=== PATIENT | male | born 1990 | race Caucasian/White ===

== ENCOUNTER 2016-10-21 17:23 | Emergency (ER) | payer OTHER | END 2016-10-21 20:11 | disposition home or self-care (01) | DX: M54.5 Low back pain (principal); W10.2XXA Fall (on)(from) incline, initial encounter; R03.0 Elevated blood-pressure reading, without diagnosis of hypertension; Z87.891 Personal history of nicotine dependence ==

== ENCOUNTER 2017-01-31 17:39 | Emergency (ER) | payer OTHER ==
[2017-01-31] MEDS ORDERED: DEXAMETHASONE 10 MG/ML VIAL PO STA (21:12)
[2017-01-31] MEDS ORDERED: AZITHROMYCIN 250 MG TABLET PO STA (21:12)
--- NOTE | 2017-01-31 21:14 | ED Physician Documentation ---
PD HPI HEENT - Stated complaint Stated Complaint: BILAT EAR RINGING - Chief complaint Chief Complaint: Heent - History obtained from History obtained from: Patient, Family - History of Present Illness Timing - onset: How many weeks ago (6) Timing - duration: Weeks (6) Timing - details: Gradual onset, Still present Location: Right ear, Left ear Improves: Nothing Associated symptoms: Rhinorrhea, Other (tinitus) Similar symptoms before: Diagnosis (OM) Recently seen: Not recently seen - Additional information Additional information: 26-year-old previously healthy male has had tinnitus in his ears for the past 6 weeks. He has now developed enough tinnitis that he is unable to sleep at night and he has not been able to secure an appointment with [facility]. He has had a history previously of otitis media as a child multiple times and had tubes. He eventually stopped taking antibiotics and just dealt with it. He is now unable to sleep secondary to the tinnitis and some mild pain. Review of Systems Constitutional: denies: Fever Eyes: denies: Decreased vision Ears: reports: Loss of hearing, Ear pain, Tinnitus/ringing Nose: reports: Rhinorrhea / runny nose. denies: Congestion Throat: denies: Sore throat Respiratory: denies: Dyspnea, Cough GI: denies: Nausea Neurologic: denies: Headache PD PAST MEDICAL HISTORY - Past Surgical History Past Surgical History: No - Present Medications Home Medications: Ambulatory Orders Medication Instructions Recorded Confirmed Azithromycin [Zithromax] 250 mg PO DAILY #4 tablet 01/31/17 - Allergies Allergies/Adverse Reactions: Allergies Allergy/AdvReac Type Severity Reaction Status Date / Time amoxicillin Allergy Unknown Verified 10/21/16 17:29 Penicillins Allergy Unknown Verified 10/21/16 17:29 - Social History Does the pt smoke?: No Smoking Status: Former smoker Does the pt drink ETOH?: Yes Does the pt have substance abuse?: No - Immunizations Immunizations are current?: Yes PD ED PE NORMAL - Vitals Vital signs reviewed: Yes (Hypertensive) - General General: Alert and oriented X 3, No acute distress, Well developed/nourished - HEENT HEENT: Atraumatic, PERRL, EOMI, Other (Both TMs are markedly inflamed with distorted landmarks and retraction of the TM. The left appears worse than the right.) - Neck Neck: Supple, no meningeal sign, No bony TTP - Cardiac Cardiac: RRR, No murmur - Respiratory Respiratory: No respiratory distress, Clear bilaterally - Abdomen Abdomen: Soft, Non tender - Back Back: No CVA TTP, No spinal TTP - Derm Derm: Normal color, Warm and dry, No rash - Extremities Extremities: No deformity, No edema - Neuro Neuro: Alert and oriented X 3, No motor deficit, No sensory deficit, Normal speech - Psych Psych: Normal mood, Normal affect Results - Vitals Vitals: Vital Signs - 24 hr 01/31/17 17:49 Temperature 36.8 C Heart Rate 90 Respiratory 16 Rate Blood Pressure 131/81 H O2 Saturation 99 Oxygen O2 Source Room air PD MEDICAL DECISION MAKING - ED course Complexity details: considered differential, d/w patient, d/w family ED course: 26-year-old male with acute otitis media has prior history with frequent infections and he has ignored this infection for about 6 weeks. He now is desiring treatment. Here in the emergency department he is administered dexamethasone 10 mg orally and azithromycin 500 mg orally. Departure - Departure Disposition: 01 Home, Self Care Clinical Impression: Otitis media Qualifiers: Otitis media type: suppurative Laterality: bilateral Chronicity: acute Recurrence: not specified as recurrent Spontaneous tympanic membrane rupture: without spontaneous rupture Qualified Code(s): H66.003 - Acute suppurative otitis media without spontaneous rupture of ear drum, bilateral Condition: Stable Instructions: ED Otitis Media Acute Adult Follow-Up: [facility] [Provider Group] Prescriptions: Azithromycin [Zithromax] 250 mg PO DAILY #4 tablet Comments: Today in the Emergency Department your blood pressure was elevated. This can happen from the stress of the visit itself, from a current illness or circumstance or from uncontrolled hypertension. If you take blood pressure medications take your usual mediations, have your blood pressure re-checked in an appropriate setting and follow up any elevation with your primary care doctor.
[2017-01-31 21:24] VITALS: BP 134/66
== END 2017-01-31 21:23 | disposition home or self-care (01) ==
LOC: ED 17:39
DX: H66.003 Acute suppurative otitis media without spontaneous rupture of ear drum, bilateral (principal); R03.0 Elevated blood-pressure reading, without diagnosis of hypertension; Z87.891 Personal history of nicotine dependence
CPT/HCPCS: 99283

== ENCOUNTER 2018-03-28 19:27 | Emergency (ER) | payer OTHER ==
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
[2018-03-28] MEDS ORDERED: HYDROcod/ACET 5/325 Prepack 4 PO STA (21:08)
[2018-03-28] MEDS ORDERED: CYCLOBENZAPRINE 10 MG Prepack 2 PO PRN (21:08)
[2018-03-28 21:42] VITALS: BP 136/71
== END 2018-03-28 21:42 | disposition home or self-care (01) ==
LOC: ED 19:27
DX: M54.5 Low back pain (principal)
CPT/HCPCS: 99283

== ENCOUNTER 2019-01-04 17:47 | Emergency (ER) | payer OTHER ==
[2019-01-04 18:00] VITALS: BP 142/117
== END 2019-01-04 21:04 | disposition left against medical advice (07) ==
LOC: ED 17:47
DX: M54.9 Dorsalgia, unspecified (principal); Z53.21 Procedure and treatment not carried out due to patient leaving prior to being seen by health care provider
CPT/HCPCS: 99281

== ENCOUNTER 2020-02-18 13:09 | Emergency (ER) | payer OTHER ==
--- NOTE | 2020-02-18 13:23 | ED Physician Documentation ---
PD HPI OPHTHO - Stated complaint Stated Complaint: LT EYE PX - Chief complaint Chief Complaint: Heent - History obtained from History obtained from: Patient - History of Present Illness Timing - onset: Today (onset left eye pain without obvious injury this morning.), Last night (a little uncomfortable last night) Timing - duration: Days (1/2) Timing - details: Gradual onset, Still present Location: Left Quality / character: Aching, Sharp Associated symptoms: Redness, Tearing, FB sensation (central eye), Decreased vision (feels it is blurred). No: Swelling, Discharge Contributing factors: No: Recent URI, FB, Wears contacts Similar symptoms before: Has not had sx before Review of Systems Constitutional: denies: Fever, Chills Eyes: reports: Decreased vision, Irritation. denies: Loss of vision, Discharge Nose: denies: Rhinorrhea / runny nose, Congestion Throat: denies: Sore throat Respiratory: denies: Cough PD PAST MEDICAL HISTORY - Past Medical History Cardiovascular: None Respiratory: None Neuro: None Endocrine/Autoimmune: None GI: None : None HEENT: None Psych: None Musculoskeletal: Chronic back pain Derm: None - Past Surgical History Past Surgical History: No - Present Medications Home Medications: Ambulatory Orders Medication Instructions Recorded Confirmed Ibuprofen [Motrin] 600 mg PO TID PRN #25 tab 02/18/20 Ketorolac 0.45% Ophth Drops 1 each LEFTEYE QID #1 bottle 02/18/20 [Acuvail] Neomycin Daniel/Bacitra/Polymyxin 1 applic LEFTEYE QID #3.5 oint...g. 02/18/20 [Hepaxs-Kcovj-Mejcrqk Eye Oint] - Allergies Allergies/Adverse Reactions: Allergies Allergy/AdvReac Type Severity Reaction Status Date / Time amoxicillin Allergy Unknown Verified 02/19/20 09:56 Penicillins Allergy Unknown Verified 02/19/20 09:56 - Social History Does the pt smoke?: No Smoking Status: Never smoker Does the pt drink ETOH?: Yes Does the pt have substance abuse?: No - Immunizations Immunizations are current?: Yes - POLST Patient has POLST: No PD ED PE NORMAL - Vitals Vital signs reviewed: Yes - General General: Alert and oriented X 3, Well developed/nourished, Other (appears very uncomfortable, reluctant to open eye due to discomfort. ) - HEENT HEENT: PERRL, EOMI (light sensitive left eye. Hyperemia without discharge. ), Ears normal, Pharynx benign - Neck Neck: Supple, no meningeal sign, No adenopathy PD ED PE EXPANDED - Eyes Eyes: Injected conj/sclera, Corneal abrasion, Fluorescein uptake (central portion of eye, superficially), Anterior chambers clear, Normal fundi. No: Exudate, Corneal FB, Corneal ulcer Results - Vitals Vitals: Oxygen O2 Source Room air PD MEDICAL DECISION MAKING - ED course Complexity details: re-evaluated patient (feels much better with proparacainbe. ), considered differential, d/w patient Departure - Departure Disposition: Home, Self Care Clinical Impression: Corneal abrasion Qualifiers: Encounter type: subsequent encounter Laterality: left Qualified Code(s): S05.02XD - Injury of conjunctiva and corneal abrasion without foreign body, left eye, subsequent encounter Condition: Stable Record reviewed to determine appropriate education?: Yes Instructions: ED Eye Injury Corneal Abrasion Follow-Up: [facility] [Provider Group] Brendan Robbins MD [Provider Admit Priv/Credential] - Prescriptions: Ketorolac 0.45% Ophth Drops [Acuvail] 1 each LEFTEYE QID #1 bottle Ibuprofen [Motrin] 600 mg PO TID PRN #25 tab PRN Reason: Pain Neomycin Daniel/Bacitra/Polymyxin [Cxyvhf-Ciqzu-Toubojw Eye Oint] 1 applic LEFTEYE QID #3.5 oint...g. Comments: You do have an abrasion on the anterior part of the eye. Use the anti- inflammatory drops and antibiotic ointment 4 times a day for the next several days. Try to have your eye rechecked tomorrow if possible at your primary care or the medical record technician. If it continues to get better and you are unable to get it checked tomorrow then Saturday is okay. Come back to the ER within 2 to 3 days if it is not improving well. Forms: Activity restrictions Discharge Date/Time: 02/18/20 15:41
[2020-02-18] MEDS ORDERED: PROPARACAINE 0.5% OPHTH DROPS 15 ML EACHEYE STA (13:27)
[2020-02-18] MEDS ORDERED: ERYTHROMYCIN OPHTH OINT 1 GM TUBE LEFTEYE STA (14:31)
[2020-02-18] MEDS ORDERED: IBUPROFEN 600 MG TABLET PO STA (15:23)
[2020-02-18 15:38] VITALS: BP 130/78
== END 2020-02-18 15:41 | disposition home or self-care (01) ==
LOC: ED 13:09
DX: S05.02XA Injury of conjunctiva and corneal abrasion without foreign body, left eye, initial encounter (principal); X58.XXXA Exposure to other specified factors, initial encounter
CPT/HCPCS: 99283; J3490

== ENCOUNTER 2020-02-19 09:28 | Outpatient (CLI) | payer OTHER | END 2020-02-19 09:29 | disposition critical access hospital (66) | LOC: EMS 09:28 | PROVIDERS: ATTEND Surgery | DX: H57.12 Ocular pain, left eye (principal) | CPT/HCPCS: A0425; A0429 ==

== ENCOUNTER 2020-02-19 09:46 | Emergency (ER) | payer OTHER ==
--- NOTE | 2020-02-19 09:50 | ED Physician Documentation ---
PD HPI OPHTHO - Stated complaint Stated Complaint: EYE PAIN - History obtained from History obtained from: Patient - History of Present Illness Timing - onset: Yesterday Timing - duration: Days (2) Timing - details: Gradual onset, Still present (worse today, when awoke, could not open eye due to pain of it and light sensitive.) Location: Left Quality / character: Aching, Sharp Associated symptoms: Redness, Tearing, FB sensation, Photophobia, Decreased vision. No: Swelling, Discharge, Loss of vision, Headache Contributing factors: No: Recent URI, FB, Wears contacts Similar symptoms before: Has not had sx before Recently seen: Emergency Dept (yesterday for this, Dx with corneal abrasion rounded and central area, with superficial dye uptake. Rx with ketorolac and neomycin eye meds. He states the meds hurt with use. Eye pain worse today.) Review of Systems Constitutional: denies: Fever, Chills Nose: denies: Rhinorrhea / runny nose, Congestion Throat: denies: Sore throat Respiratory: denies: Cough PD PAST MEDICAL HISTORY - Past Medical History Cardiovascular: None Respiratory: None Neuro: None Endocrine/Autoimmune: None GI: None : None HEENT: None Psych: None Musculoskeletal: Chronic back pain Derm: None - Past Surgical History Past Surgical History: No - Present Medications Home Medications: Ambulatory Orders Medication Instructions Recorded Confirmed Ibuprofen [Motrin] 600 mg PO TID PRN #25 tab 02/18/20 Ketorolac 0.45% Ophth Drops 1 each LEFTEYE QID #1 bottle 02/18/20 [Acuvail] Neomycin Daniel/Bacitra/Polymyxin 1 applic LEFTEYE QID #3.5 oint...g. 02/18/20 [Xqhlhf-Gepfc-Gynfucq Eye Oint] - Allergies Allergies/Adverse Reactions: Allergies Allergy/AdvReac Type Severity Reaction Status Date / Time amoxicillin Allergy Unknown Verified 02/19/20 09:56 Penicillins Allergy Unknown Verified 02/19/20 09:56 - Social History Does the pt smoke?: No Smoking Status: Never smoker Does the pt drink ETOH?: Yes Does the pt have substance abuse?: No - Immunizations Immunizations are current?: Yes - POLST Patient has POLST: No PD ED PE NORMAL - Vitals Vital signs reviewed: Yes - General General: Alert and oriented X 3, Well developed/nourished, Other (appears in pain due to eye. Reluctant to open eyelid. Light sensitive. ) - HEENT HEENT: PERRL, EOMI - Derm Derm: Normal color, Warm and dry, No rash PD ED PE EXPANDED - HEENT HEENT Visual: 1 - abrasion - Eyes Eyes: EOMI, Left eye, No eyelid FB (everted), Injected conj/sclera, Fluorescein uptake (rouned area central front. The dye uptake seems denser than yesterday. No ulceration per se seen. ), Anterior chambers clear, Normal fundi, Other (feels much better with proparacaine drops. ). No: EOM palsy, Exudate Results - Vitals Vitals: Vital Signs - 24 hr 02/19/20 02/19/20 02/19/20 09:51 11:10 11:56 Temperature 36.6 C 36.9 C 36.5 C Heart Rate 82 66 88 Respiratory 20 20 18 Rate Blood Pressure 159/100 H 121/91 H 166/103 H O2 Saturation 100 100 100 Oxygen O2 Source Room air PD MEDICAL DECISION MAKING - ED course Complexity details: re-evaluated patient (He does feel better with the numbing drops and allowed to re-dose them here. He was not discharged with the drops. We were able to arrange a follow-up appointment with Dr. Robbins ophthalmology at 2 PM this afternoon. There were no providers in [facility] which was right nearby.), considered differential (Persistent appearance of corneal abrasion with increasing pain. I can see if we can get ophthalmology to examine him today and can try the local providers.), d/w patient Departure - Departure Disposition: 01 Home, Self Care Clinical Impression: Corneal abrasion Qualifiers: Encounter type: subsequent encounter Laterality: left Qualified Code(s): S05.02XD - Injury of conjunctiva and corneal abrasion without foreign body, left eye, subsequent encounter Condition: Stable Record reviewed to determine appropriate education?: Yes Follow-Up: Brendan Robbins MD [Provider Admit Priv/Credential] - Comments: Follow-up with Dr. Robbins this afternoon at 2 PM as scheduled. Do not worry about the eyedrops previously prescribed at this point. Continue with recommendations or prescriptions from him. Discharge Date/Time: 02/19/20 11:45
[2020-02-19] MEDS ORDERED: IBUPROFEN 600 MG TABLET PO STA (10:04)
[2020-02-19] MEDS ORDERED: ACETAMINOPHEN 325 MG TABLET PO STA (10:04)
[2020-02-19] MEDS ORDERED: ERYTHROMYCIN OPHTH OINT 1 GM TUBE LEFTEYE STA (10:36)
[2020-02-19] MEDS ORDERED: HYDROcod/ACETAM 5/325 MG TABLET PO STA (10:36)
[2020-02-19 11:58] VITALS: BP 166/103
== END 2020-02-19 11:45 | disposition home or self-care (01) ==
LOC: EDUNIT# → ED 09:46
DX: S05.02XA Injury of conjunctiva and corneal abrasion without foreign body, left eye, initial encounter (principal); X58.XXXA Exposure to other specified factors, initial encounter
CPT/HCPCS: 99283; A9270; J3490

== ENCOUNTER 2020-10-24 21:30 | Emergency (ER) | payer OTHER ==
[2020-10-24 22:31] LABS: BILIRUBIN,URINE NEGATIVE (NEGATIVE); GLUCOSE, URINE (UA) NEGATIVE (NEGATIVE); KETONES,URINE (UA) TRACE mg/dL (NEGATIVE); LEUKOCYTE ESTERASE, URINE NEGATIVE (NEGATIVE); NITRITE,URINE NEGATIVE (NEGATIVE); OCCULT BLOOD,URINE NEGATIVE (NEGATIVE); PROTEIN,URINE NEGATIVE (NEGATIVE); UROBILINOGEN,URINE 0.2 (NORMAL) E.U./dL (NORMAL)
[2020-10-24 22:33] LABS: CLARITY,URINE CLEAR (CLEAR)
--- NOTE | 2020-10-24 22:45 | ED Physician Documentation ---
History of Present Illness - Stated complaint Stated Complaint: LOWER BACK PX - Chief complaint Chief Complaint: Abd Pain - History obtained from History obtained from: Patient - Additonal information Additional information: Patient comes emergency department chief complaint of right lower back pain that has been Increasing in duration and intensity over the course of the day since noon. Patient states that he has not had any nausea or vomiting. No fever or chills. No dysuria or gross hematuria. He states he has a history of some low back problems and previous years, but this does not feel the same. He states he has not done anything that he can think of to injure or stress his back. No direct trauma. Patient states he has not had any pain, numbness, or tingling shooting down his right leg. No loss of bowel or bladder control. Patient has noticed some radiation of pain to his right lower quadrant. Patient states he otherwise feels well and has no other complaints at this time. Review of Systems Ten Systems: 10 systems reviewed and negative Constitutional: reports: Reviewed and negative Eyes: reports: Reviewed and negative Ears: reports: Reviewed and negative Nose: reports: Reviewed and negative Throat: reports: Reviewed and negative Cardiac: reports: Reviewed and negative Respiratory: reports: Reviewed and negative GI: reports: Reviewed and negative. denies: Nausea, Vomiting : reports: Reviewed and negative. denies: Dysuria Skin: reports: Reviewed and negative Musculoskeletal: reports: Back pain Neurologic: reports: Reviewed and negative Psychiatric: reports: Reviewed and negative Endocrine: reports: Reviewed and negative Immunocompromised: reports: Reviewed and negative PD PAST MEDICAL HISTORY - Past Medical History Cardiovascular: None Respiratory: None Neuro: None Endocrine/Autoimmune: None GI: None : None HEENT: None Psych: None Musculoskeletal: Chronic back pain Derm: None - Past Surgical History Past Surgical History: No - Present Medications Home Medications: Ambulatory Orders Medication Instructions Recorded Confirmed Cyclobenzaprine [Flexeril] 10 mg PO TID PRN #20 tablet 10/24/20 Fexofenadine/Pseudoephedrine 1 tab PO DAILY 10/24/20 10/24/20 [Fifi-D 12 Hour Tablet] Fluticasone [Flonase] 10/24/20 - Allergies Allergies/Adverse Reactions: Allergies Allergy/AdvReac Type Severity Reaction Status Date / Time amoxicillin Allergy Unknown Verified 10/24/20 21:38 Penicillins Allergy Unknown Verified 10/24/20 21:38 - Social History Does the pt smoke?: No Smoking Status: Never smoker Does the pt drink ETOH?: Yes Does the pt have substance abuse?: No - Immunizations Immunizations are current?: Yes - POLST Patient has POLST: No PD ED PE NORMAL - Vitals Vital signs reviewed: Yes - General General: Alert and oriented X 3, No acute distress, Well developed/nourished - HEENT HEENT: Atraumatic, PERRL, EOMI, Moist mucous membranes - Neck Neck: Supple, no meningeal sign - Cardiac Cardiac: RRR, No murmur - Respiratory Respiratory: No respiratory distress, Clear bilaterally - Abdomen Abdomen: Soft, Non tender, Non distended - Back Back: No CVA TTP, No spinal TTP, Other (No tenderness palpation at any level of the back over spine or musculature, on either side. 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, Normal speech, Other (Normal, narrow based gait.) - Psych Psych: Normal mood, Normal affect Results - Vitals Vitals: Oxygen O2 Source Room air - Labs Labs: Laboratory Tests 10/24/20 21:41 Urine Color YELLOW Urine Clarity CLEAR Urine pH 7.0 Ur Specific [place] 1.020 Urine Protein NEGATIVE Urine Glucose (UA) NEGATIVE Urine Ketones TRACE Urine Occult Blood NEGATIVE Urine Nitrite NEGATIVE Urine Bilirubin NEGATIVE Urine Urobilinogen 0.2 (NORMAL) Ur Leukocyte Esterase NEGATIVE Ur Microscopic Review NOT INDICATED Urine Culture Comments NOT INDICATED PD MEDICAL DECISION MAKING - ED course Complexity details: reviewed old records, reviewed results, re-evaluated patient, considered differential, d/w patient ED course: The patient was neurologically intact and afebrile. He did not have any concerning findings. Given that he did not have any pain that could be elicited by movement or palpation, I was concerned that he may have a kidney stone. As such, he was worked up with urinalysis and CT abdomen pelvis without contrast, Which was negative. Urinalysis is also negative. Patient was treated symptomatically in the emergency department. We have discussed home management of the symptoms, and the potential need for follow-up. We have discussed the usual indications for return. Departure - Departure Disposition: 01 Home, Self Care Clinical Impression: Acute lumbar back pain Qualifiers: Back pain laterality: right Sciatica presence: without sciatica Qualified Code(s): M54.5 - Low back pain Condition: Stable Instructions: ED Neck Back Pain General Prescriptions: Cyclobenzaprine [Flexeril] 10 mg PO TID PRN #20 tablet PRN Reason: Spasms Comments: Your urinalysis and CT scan look good. There is no evidence of a kidney stone, infection, or any other concerning abnormality. It is not clear exactly what has caused your back pain, though normally, these sorts of symptoms are due to inflammation and irritation from normal wear and tear. As we have discussed, the back is constantly working to stabilize your core and keep your body in an upright position, and sometimes small strains or even mild alterations away from ideal posture can put extra stress on the musculoskeletal structures of the back. This can lead to development of inflammation for seemingly no reason. Usually,this will blow over in time. You may use anti-inflammatories such as ibuprofen, though dosing for an adult of your size should be 600 mg every 6 hours while awake or 800 mg every 8 hours while awake. You may also use the muscle relaxer prescribed to help with any muscle spasm/tightness that may develop. Please follow-up with your primary care physician tomorrow as planned. Avoid heavy lifting until your back is feeling a little better. Discharge Date/Time: 10/24/20 23:40
[2020-10-24] MEDS ORDERED: KETOROLAC 60 MG/2 ML VIAL IM STA (22:47)
[2020-10-24] MEDS ORDERED: CYCLOBENZAPRINE 10 MG TABLET PO STA (23:36)
[2020-10-24 23:40] VITALS: BP 121/73
--- NOTE | 2020-10-25 08:17 | CT Report ---
PROCEDURE: Abdomen/Pelvis WO INDICATIONS: R back/flank pain TECHNIQUE: Noncontrast 5 mm thick sections acquired from the diaphragms to the symphysis. 5 mm coronal and sagi ttal reformats were then performed. For radiation dose reduction, the following was used: automated exposure control, adjustment of mA and/or kV according to patient size. COMPARISON: None. FINDINGS: Image quality: Excellent. ABDOMEN: Lung bases: Lung bases are clear. Heart size is normal. Solid organs: Liver and spleen are normal in size. Gallbladder is unremarkable Pancreas is normal in contours. No adrenal nodules. Kidneys are normal in size, without hydronephrosis or nephrolithia sis. Peritoneum and bowel: Unenhanced bowel loops demonstrate normal wall thickness and caliber. No free fluid or air. Normal appendix Nodes and vessels: No retroperitoneal or mesenteric adenopathy by size criteria. Aorta and inferior vena cava are normal in caliber. Miscellaneous: No ventral hernias. PELVIS: Genitourinary: Bladder wall thickness is normal. Miscellaneous: No inguinal hernias or adenopathy. Bones: No suspicious bony lesions. No vertebral body compression fractures. IMPRESSION: CT abdomen and pelvis without acute abnormalities. No significant discrepancy with initial interpretation by overnight radiologist. Reviewed by: Apollo Kramer MD on 10/25/2020 8:16 AM PDT Approved by: Apollo Kramer MD on 10/25/2020 8:16 AM PDT Station ID: [id number]
== END 2020-10-24 23:40 | disposition home or self-care (01) ==
LOC: ED 21:30
DX: M54.5 Low back pain (principal)
CPT/HCPCS: 74176; 81003; 96372; 99284; A9270; 81001; 87086

== ENCOUNTER 2021-09-23 11:08 | Outpatient (CLI) | payer OTHER | END 2021-09-23 23:59 | disposition home or self-care (01) | LOC: LAB.N 11:08 | PROVIDERS: ATTEND Physician Assistant | DX: R51.9 Headache, unspecified (principal); Z20.822 Contact with and (suspected) exposure to COVID-19 ==

== ENCOUNTER 2024-03-05 08:05 | Outpatient (CLI) | payer OTHER ==
--- NOTE | 2024-03-05 09:13 | Sleep Patient Instructions ---
Sleep Center Visit Summary - Patient Visit Information Reason for Visit: Initial consult for evaluation of sleep disordered breathing and other sleep issues. - Patient Instructions Instructions Attached: Sleep Study Home Monitor, Sleep Study Additional Instructions: You will be completing a sleep study, either an in-lab polysomnography (PSG) or home sleep study (HST). You will follow-up in the sleep care office after the sleep study is completed to hear the results and talk about therapy, if needed. You will be called by our office staff to schedule this appointment, but you may contact us with any questions. - Clinic Information Contact: [facility] [address] [place] [id number] [email or web address] T: [phone]
--- NOTE | 2024-03-05 09:16 | SLEEP CARE CONSULTATION ---
Information from patient questionnaire entered by [employer]. I have reviewed and concur with the information entered by [employer]. This document represents the service I personally performed and the decisions made by me, Kathy Mirza ARNP. History of Present Illness Service Date and Time: 03/05/2024 08 Reason for Visit: New patient Chief Complaint: reports: Unrefreshed sleep, Snoring, Excessive daytime sleepiness, Observed pauses in breathing, Fatigue Date of Onset: YRS BUT WORSE OVER PAST YEAR Usual bedtime: 2029 Time it takes to fall asleep: IMMEDIATLY IF I NAP IT WILL TAKE A WHILE Snores at night: Yes Observed to quit breathing while asleep: Yes Sleeps alone due to snoring: No Reasons for waking at night: reports: Gasping for air Toss, Turn, or Twitch while sleeping: Yes Recalls having dreams: Yes Usually gets out of bed at: 0500 Feels refreshed in the morning: No Morning headache: Yes Sleepy or fatigued during the day: Yes Ever fallen asleep while driving: Yes Takes day naps: Yes Dreams during day naps: Yes Prior sleep studies: No Additional HPI information: I had the pleasure of seeing VAN PINEDO today regarding the possibility of him having a sleep disorder. His current complaints are unrefreshed sleep, snoring, excessive daytime sleepiness, observed pauses in breathing and fatigue. He says he is extremely fatigued during the day and taking too many naps. He says he has 36 alarms on his phone to get him up in the morning. He thought it was normal. He woke up for the first time gasping for air about a few weeks ago. He says throughout the day, if he sits down he will fall asleep. He says he has been sleeping in a recliner the last few weeks and he thinks he is sleeping better. The patient tells me that he normally goes to bed around 8:30-9 pm, and he will fall asleep in minutes unless he had a nap it could be an hour or two. He has been told that he snores loudly and irregularly at night. He has been observed to stop breathing in his sleep. His bed partner can still sleep in the same bed. He can recall waking up on the average of 0 times during the night. His says he does wake up and turn but he does not remember these actions. He has occasionally awakened for choking, and having to gasp for air. There is a lot of tossing and turning in his sleep. Generally he can recall having dreams. He usually wakes up at 0500 but no out of bed until 0700 and does not feel refreshed. He usually does have a morning headache about 1-2 times a week that lasts until [id number]. During the day he complains of feeling sleepy and fatigued. He has fallen asleep while driving and has gone out of the emmett, no accident. He usually naps when falling asleep on couch watching TV (unintentional) for about 1-3 hours during the day. There is somniloquy (sleep talking) but no somnambulism (sleep walking). He reports of sometimes having impaired concentration during the day. - Parasomnia Symptoms Ever been unable to move upon waking from sleep: Yes Walks in sleep: No Talks in sleep: Yes Ever acted out dreams in sleep: No Ever felt weak in the knees when startled or emotional: No Bothered by creepy, crawly, restless sensations in legs: No Problems with memory or concentration: Yes Subjective Initial [place] Sleepiness Scale score: 20 (03/05/24) Past Medical History Past Medical History: reports: Anxiety, Depression Social History The patient's occupation is a AM. Patient is and lives in [place]. Have you smoked in the past 12 months: No Alcohol use: No Caffeine use: Yes Caffeine amount and frequency: 1X ENERGY DRINK ONCE A DAY Family History Family history of sleep disordered breathing: Yes Family Hx Sleep Apnea: Mother: Snoring, Sleep apnea - Untreated, Father: Snoring, Sleep apnea - Untreated, Grandparent: Snoring, Sleep apnea - Treated Allergies and Home Medications Known drug allergies: Yes ( LISTED ) Drug allergies reviewed: Yes Home medication list reviewed: Yes (as listed) Allergy and home medication list: Allergies amoxicillin Allergy (Verified 03/05/24 08:27) Unknown Penicillins Allergy (Verified 03/05/24 08:27) Unknown Home Medications Medication Instructions Recorded Confirmed Last Taken Type Desvenlafaxine Succinate [Pristiq] See Rx Instructions .ROUTE .COMPLEX 03/05/24 03/05/24 Unknown History Review of Systems Weight gain over past 5 years: 30 Cardiovascular: denies: high blood pressure Gastrointestinal: reports: heartburn, difficulty swallowing Neurological: denies: headaches Psychiatric: reports: anxiety, depression Ear/Nose/Throat: reports: wisdom teeth removed. denies: tonsillectomy Immunologic: reports: sneezing, allergies to food or environment Physical Exam Vital signs obtained and entered by: MY Mcpherson MA Blood Pressure: 133/87 (RIGHT ARM) Cuff size: long Heart Rate: 80 O2 Saturation: 99 Height: 6 ft 2 in Weight: 254 lb Body Mass Index: 32.5 BMI Classification: Obese Neck circumference: 17.25 Nostrils: patent to airflow Mouth and throat: normal Soft palate: normal Hard palate: normal Uvula: normal Uvula visualization: 100% Mallampati Class I Tongue: normal in size Tonsils: small Neck: normal w/o lymphadenopathy or thyromegaly Heart: regular rate and rhythm Lungs: clear bilaterally Impression and Plan 1. Suspected Obstructive Sleep Apnea-Hypopnea Syndrome, as suggested by a history of loud and irregular snoring, observed cessation of breath while asleep, gasping or choking in sleep, morning headache, unrefreshed sleep, cognitive impairment, and excessive daytime sleepiness. Narrow oropharynx and obesity are common predisposing factors for obstructive sleep apnea-hypopnea syndrome. I recommend proceeding to polysomnography to confirm the diagnosis and to assess severity. If the patient has significant sleep disordered breathing, a manual CPAP titration study will also be performed to find the optimal treatment pressure. I informed the patient of what the sleep studies involve and after some discussion, obtained agreement to proceed. The pathophysiology of obstructive sleep apnea-hypopnea syndrome was discussed with the patient and health risks of cardiovascular and cerebrovascular disease if not treated. Risks of drowsy driving discussed in detail and patient advised to avoid long di stance driving and to tack puller machine at the first sign of drowsiness. Patient agreed to plan. * Schedule polysomnography * Avoid long distance driving or driving when feeling sleepy. * Avoid alcohol, sedative and muscle relaxant around bedtime. * Attempt to lose weight. * Review instructions provided by trained office staff on how to prepare for the sleep study. * Return for follow-up after sleep study completed. Counseling Topics: Weight loss health impact Plan: PSG/HST and follow up Visit Type: In Office Time Spent with Patient (minutes): 30 Provider Statement: I spent 100% of the Face to Face Visit with the patient with greater than 50% spent counseling the patient and coordination of care.
[2024-03-05 09:18] VITALS: BP 133/87; O2SAT 99
== END 2024-03-05 08:06 | disposition home or self-care (01) ==
LOC: SC 08:05
PROVIDERS: ATTEND Nurse Practitioner Family
DX: G47.8 Other sleep disorders (principal); R06.83 Snoring; G47.10 Hypersomnia, unspecified; R06.81 Apnea, not elsewhere classified; R53.83 Other fatigue; R51.9 Headache, unspecified; R41.89 Other symptoms and signs involving cognitive functions and awareness; E66.9 Obesity, unspecified; Z68.32 Body mass index [BMI] 32.0-32.9, adult
CPT/HCPCS: 99203; 99212

== ENCOUNTER 2024-03-09 12:02 | Outpatient (CLI) | payer OTHER | END 2024-03-09 12:03 | disposition home or self-care (01) | LOC: SC 12:02 | PROVIDERS: ATTEND Nurse Practitioner Family | DX: R06.83 Snoring (principal) | CPT/HCPCS: 95806 ==

== ENCOUNTER 2024-03-25 12:20 | Outpatient (CLI) | payer OTHER | END 2024-03-25 12:21 | disposition home or self-care (01) | LOC: SC 12:20 | PROVIDERS: ATTEND Nurse Practitioner Family | DX: R06.83 Snoring (principal); R09.02 Hypoxemia; R00.0 Tachycardia, unspecified; F32.A Depression, unspecified | CPT/HCPCS: 95806 ==

== ENCOUNTER 2024-04-02 13:12 | Outpatient (CLI) | payer OTHER ==
--- NOTE | 2024-04-02 13:40 | Sleep Patient Instructions ---
Sleep Center Visit Summary - Patient Visit Information Reason for Visit: Sleep study follow-up - Patient Instructions Instructions Attached: Snoring Tips Prevent Additional Instructions: Your sleep study today was negative for significant sleep disordered breathing. You will be completing a sleep study an in-lab polysomnography (PSG). You will follow-up in the sleep care office after the sleep study is completed to hear the results and talk about therapy, if needed. You will be called by our office staff to schedule this appointment, but you may contact us with any questions. - Clinic Information Contact: [facility] [address] [place] [address] [email or web address] T: [phone]
--- NOTE | 2024-04-02 13:45 | SLEEP CARE CONSULTATION ---
Information from patient questionnaire entered by Sierra Lopez. I have reviewed and concur with the information entered by Sierra Lopez. This document represents the service I personally performed and the decisions made by , Kathy Mirza ARNP. History of Present Illness Service Date and Time: 04/02/2024 1312 Initial [place] Sleepiness Scale score: 20 (03/05/24) Current [place] Sleepiness Scale score: 21 (04/02/24) Additional HPI information: VAN PINEDO returns for follow up and results of the recently performed home sleep study done on 03/25/2024. The patient was informed of the following findings: No significant sleep diso rdered breathing with an average AHI of 2.8 and gabriele oxygen saturation of 83%. I explained the pathophysiology behind obstructive sleep apnea. Patient does not have sleep apnea and was advised how weight gain could increase the risk of developing sleep apnea in the future. I strongly encouraged the patient to lose weight. Patient has mild snoring. Snoring can be reduced by weight loss. Weight loss is best achieved with diet consult. Patient instructed to contact PCP for referral. Snoring can also be treated with an oral appliance from a dentist. Advised to check insurance coverage. In addition, an ENT evaluation can be do to see if other treatment is indicated. Patient does not drink alcohol. Patient was cautioned about risks of drowsy driving until sleepiness symptoms resolve. Sleep Study - Results Prior sleep studies: No Polysomnography/Home Sleep Study results: Physician Impression: The quality of the study is good. The length of the study is adequate (> 240 minutes). Please also see the tabulated and graphic data. 1. No significant sleep disordered breathing, with an AHI of 2.8/hr and gabriele SaO2 of 83%. During the study, the patient had 9 apneas (9 obstructive, 0 central, 0 mixed) and 10 hypopneas. The longest episode lasted 112.0 seconds. Few respiratory events occurred more frequently during supine sleep (supine AHI was 3.9 and non-supine, 0.82). 2. Hypoxemia (ICD-10 R09.02), minimal, with the lowest oxygen saturation of 83 % and 0.4 minutes with SaO2 under 90%. Baseline oxygen saturation was normal (Average oxygen saturation was 95%). 3. Tachycardia, with maximum recorded heart rate of 182 beats per minute. Allergies and Home Medications Known drug allergies: Yes (as listed) Drug allergies reviewed: Yes Home medication list reviewed: Yes (Desvenlafaxine) Allergy and home medication list: Allergies amoxicillin Allergy (Verified 04/02/24 13:27) Unknown Penicillins Allergy (Verified 04/02/24 13:27) Unknown Home Medications Desvenlafaxine Succinate [Pristiq] See Rx Instructions .ROUTE .COMPLEX 03/05/24 [History] Review of Systems Review of systems same as previous: Yes (no changes) Physical Exam Vital signs obtained and entered by: Kathy Guzman NP Blood Pressure: 130/84 Cuff size: long (right arm) Heart Rate: 89 O2 Saturation: 100 Height: 6 ft 2 in Weight: 250 lb (per pt) Body Mass Index: 32.1 BMI Classification: Obese Impression and Plan 1. Snoring but no significant sleep disordered breathing. Patient advised that often weight loss will reduce snoring as well as apnea risk. An oral appliance can also be used for snoring. This would require a dental consultation. Patient cautioned not to use other online appliances as can cause bite issues. Patient is advised to check if insurance will cover. An ENT consult can also be helpful to determine if any other treatment is an option. 2. Possible sleep disordered breathing. Patient continues with excessive daytime sleepiness. He can fall asleep at any point and has difficulty waking up in the morning. I would like him to repeat the study in the lab since it is gold standard for evaluation of sleep disordered breathing. He has a history of loud and irregular snoring, observed cessation of breath while asleep, gasping or choking in sleep, morning headache, unrefreshed sleep, and excessive daytime sleepiness. I recommend proceeding to polysomnography to confirm the diagnosis and to assess severity. I obtained agreement to proceed. The pathophysiology of obstructive sleep apnea-hypopnea syndrome was discussed with the patient and health risks of cardiovascular and cerebrovascular disease if not treated. Risks of drowsy driving discussed in detail and patient advised to avoid long distance driving and to shoe puller at the first sign of drowsiness. Patient agreed to plan. 3. Hypoxemia, minimal, with a gabriele oxygen saturation of 83% and 0.4 minutes spent under 90%. The baseline oxygen saturation was normal with an average oxygen saturation of 95%. 4. Tachycardia, unspecified. Elevated heart rate noted during sleep study with maximum heart rate at 182. I advised patient to follow-up with primary care for further evaluation of this finding. * Schedule in lab polysomnography * Avoid long distance driving or driving when feeling sleepy. * Attempt to lose weight. * Review instructions provided by trained office staff on how to prepare for the sleep study. * Return for follow-up after sleep study completed. Counseling Topics: Weight loss health impact Plan: PSG and follow up Visit Type: In Office Time Spent with Patient (minutes): 27 Provider Statement: I spent 100% of the Face to Face Visit with the patient with greater than 50% spent counseling the patient and coordination of care.
[2024-04-02 13:50] VITALS: BP 130/84; O2SAT 100
== END 2024-04-02 13:13 | disposition home or self-care (01) ==
LOC: SC 13:12
PROVIDERS: ATTEND Nurse Practitioner Family
DX: R06.83 Snoring (principal); G47.10 Hypersomnia, unspecified; E66.9 Obesity, unspecified; Z68.32 Body mass index [BMI] 32.0-32.9, adult; G47.8 Other sleep disorders; R06.81 Apnea, not elsewhere classified; R51.9 Headache, unspecified; R09.02 Hypoxemia; R00.0 Tachycardia, unspecified
CPT/HCPCS: 99212; 99213